=== PATIENT | male | born 1960 | race Caucasian/White ===

== ENCOUNTER → 2017-12-14 | Outpatient (REF) | payer SELFPAY ==
[2017-12-14 18:10] LABS: ALBUMIN 4.3 GM/DL (3.2-5.2); ALBUMIN/GLOBULIN RATIO 1.54 (1.00-1.93); ALKALINE PHOSPHATASE 67 U/L (45-117); ALT/SGPT 33 U/L (12-78); ANION GAP 9 MEQ/L (8-16); AST/SGOT 21 U/L (7-37); BLOOD UREA NITROGEN 20 MG/DL (7-18); CALCIUM LEVEL 8.8 MG/DL (8.5-10.1); CARBON DIOXIDE LEVEL 26 MEQ/L (21-32); CHLORIDE LEVEL 108 MEQ/L (98-107); CHOLESTEROL LEVEL 170 MG/DL (<200); CHOLESTEROL RISK RATIO 3.617 (<5); CREATININE FOR GFR 0.91 MG/DL (0.70-1.30); GLOMERULAR FILTRATION RATE > 60.0 (>56); GLUCOSE, FASTING 97 MG/DL (70-100); HDL CHOLESTEROL 47 MG/DL (>40); LDL CHOLESTEROL 112.4 MG/DL (<100); NON-HDL-C 123 MG/DL; POTASSIUM SERUM 4.3 MEQ/L (3.5-5.1); SODIUM LEVEL 143 MEQ/L (136-145); TOTAL PROTEIN 7.1 GM/DL (6.4-8.2); TRIGLYCERIDES LEVEL 53 MG/DL (<150)
== END ==
LOC: M LAB REF 17:06
DX: I10 Essential (primary) hypertension (principal)
CPT/HCPCS: 84443

== ENCOUNTER → 2021-09-21 | Outpatient (CLI) | payer MEDICAID, OTHER | LOC: M RAD 12:59 | PROVIDERS: ATTEND Physician Assistant | DX: M79.604 Pain in right leg (principal) ==

== ENCOUNTER → 2021-11-19 | Outpatient (CLI) | payer OTHER | LOC: M RAD 16:07 | PROVIDERS: ATTEND Physician Assistant Surgical | DX: M79.661 Pain in right lower leg (principal) ==

== ENCOUNTER → 2021-11-25 | Outpatient (CLI) | payer OTHER ==
[2021-11-25 12:30] LABS: BASO % 0.6 % (0.0-1.0); EOS # 0.1 10^3/uL (0.0-0.5); EOS % 2.8 % (0.0-3.0); HEMOGLOBIN 15.9 g/dl (13.5-17.5); LYMPH # 1.1 10^3/uL (1.5-5.0); LYMPH % 23.4 % (24.0-44.0); MEAN CORPUSCULAR HEMOGLOBIN 30.1 pg (27.0-33.0); MEAN CORPUSCULAR HGB CONC 34.6 g/dl (32.0-36.5); MEAN CORPUSCULAR VOLUME 87.1 fl (80.0-96.0); MONO # 0.5 10^3/uL (0.0-0.8); MONO % 9.8 % (2.0-8.0); NEUTROPHILS % 63.2 % (36.0-66.0); PLATELET COUNT, AUTOMATED 185 10^3/uL (150-450); RED BLOOD COUNT 5.28 10^6/uL (4.30-6.10); WHITE BLOOD COUNT 4.7 10^3/uL (4.0-10.0)
[2021-11-25 13:03] LABS: C REACTIVE PROTEIN QUANTITATIV 0.34 MG/DL (0.00-0.30); RHEUMATOID FACTOR QUANT < 10.0 IU/ML (<15.0); URIC ACID 4.4 MG/DL (3.5-7.2)
[2021-11-25 13:15] LABS: ERYTHROCYTE SEDIMENTATION RATE 1 mm/hr (0-20)
== END ==
LOC: M LAB 11:36
PROVIDERS: ATTEND Physician Assistant Surgical
DX: M79.661 Pain in right lower leg (principal)

== ENCOUNTER → 2021-11-25 | Outpatient (CLI) | payer OTHER | LOC: M RAD 11:31 | PROVIDERS: ATTEND Physician Assistant | DX: M79.671 Pain in right foot (principal); M19.071 Primary osteoarthritis, right ankle and foot ==

== ENCOUNTER → 2021-12-07 | Outpatient (CLI) | payer OTHER ==
[2021-12-07 12:38] LABS: ALBUMIN 4.3 GM/DL (3.2-5.2); BLOOD UREA NITROGEN 19 MG/DL (7-18); CALCIUM LEVEL 10.2 MG/DL (8.8-10.2); CARBON DIOXIDE LEVEL 27 MEQ/L (21-32); CHLORIDE LEVEL 111 MEQ/L (98-107); GLOMERULAR FILTRATION RATE > 60.0 (>49); GLUCOSE, FASTING 97 MG/DL (70-100); POTASSIUM SERUM 4.6 MEQ/L (3.5-5.1); SODIUM LEVEL 142 MEQ/L (136-145)
[2021-12-07 12:50] LABS: MALB URINE SIEMENS 7.3 MG/L; MAU/CREAT RATIO 6.7 MCG/MG (0.0-30.0)
== END ==
LOC: M LAB 11:20
PROVIDERS: ATTEND Internal Medicine Cardiovascular Disease
DX: I10 Essential (primary) hypertension (principal)

== ENCOUNTER → 2022-03-10 | Outpatient (CLI) | payer OTHER ==
[2022-03-10 13:28] LABS: BLOOD UREA NITROGEN 21 MG/DL (7-18); CALCIUM LEVEL 9.6 MG/DL (8.8-10.2); CARBON DIOXIDE LEVEL 29 MEQ/L (21-32); CHLORIDE LEVEL 107 MEQ/L (98-107); CREATININE FOR GFR 0.94 MG/DL (0.70-1.30); GLOMERULAR FILTRATION RATE > 60.0 (>49); GLUCOSE, FASTING 96 MG/DL (70-100); POTASSIUM SERUM 4.8 MEQ/L (3.5-5.1); SODIUM LEVEL 139 MEQ/L (136-145)
== END ==
LOC: M LAB 11:06
PROVIDERS: ATTEND Physician Assistant
DX: I10 Essential (primary) hypertension (principal)

== ENCOUNTER → 2022-03-10 | Outpatient (CLI) | payer OTHER | LOC: M LAB 11:05 | PROVIDERS: ATTEND Physician Assistant Surgical | DX: M48.062 Spinal stenosis, lumbar region with neurogenic claudication (principal) ==

== ENCOUNTER → 2022-03-11 | Outpatient (CLI) | payer OTHER ==
[2022-03-11 17:38] LABS: COLLAGEN EPINEPHRINE 139 SECONDS (74-162)
[2022-03-11 17:39] LABS: PLATELET COUNT, AUTOMATED 207 10^3/uL (150-450)
[2022-03-11 17:48] LABS: INR 0.95; PROTHROMBIN TIME 13.1 SECONDS (12.7-14.5)
[2022-03-11 17:49] LABS: PARTIAL THROMBOPLASTIN TIME 29.5 SECONDS (25.9-37.0)
== END ==
LOC: M LAB 16:35
PROVIDERS: ATTEND Physician Assistant Surgical
DX: M48.062 Spinal stenosis, lumbar region with neurogenic claudication (principal)

== ENCOUNTER → 2022-08-06 | Outpatient (REF) | payer OTHER ==
[2022-08-06 17:03] LABS: ALBUMIN 4.1 G/DL (3.2-5.2); ALKALINE PHOSPHATASE 69 U/L (46-116); ALT/SGPT 32 U/L (7.0-40); AST/SGOT 28 U/L (<34); BILIRUBIN,TOTAL 1.3 MG/DL (0.3-1.2); BLOOD UREA NITROGEN 17 MG/DL (9-23); CALCIUM LEVEL 9.2 MG/DL (8.3-10.6); CARBON DIOXIDE LEVEL 26 MMOL/L (20-31); CHLORIDE LEVEL 104 MMOL/L (98-107); CREATININE FOR GFR 0.86 MG/DL (0.70-1.30); GLOMERULAR FILTRATION RATE > 60.0 (>49); GLUCOSE, FASTING 91 MG/DL (74-106); SODIUM LEVEL 138 MMOL/L (136-145); TOTAL PROTEIN 6.9 G/DL (5.7-8.2)
[2022-08-06 17:38] LABS: HEMOGLOBIN A1c 4.9 % (4.0-6.0)
== END ==
LOC: M LAB REF 16:08
PROVIDERS: ATTEND Physician Assistant
DX: R73.9 Hyperglycemia, unspecified (principal)

== ENCOUNTER → 2022-09-29 | Outpatient (CLI) | payer OTHER | LOC: M SLEEP HO 11:27 | PROVIDERS: ATTEND Physician Assistant | DX: R06.83 Snoring (principal) ==

== ENCOUNTER → 2022-09-29 | Outpatient (CLI) | payer OTHER ==
[2022-09-29 13:37] LABS: CHOLESTEROL RISK RATIO 4.01 (<5); HDL CHOLESTEROL 43.1 MG/DL (>40); LDL CHOLESTEROL 119.9 MG/DL (<100); NON-HDL-C 129.9 MG/DL
== END ==
LOC: M LAB 11:29
PROVIDERS: ATTEND Physician Assistant
DX: Z13.220 Encounter for screening for lipoid disorders (principal)

== ENCOUNTER → 2022-10-13 | Outpatient (REF) | payer OTHER ==
[2022-10-13 16:33] LABS: HEMATOCRIT 52.2 % (42.0-52.0); HEMOGLOBIN 17.8 g/dl (13.5-17.5); MEAN CORPUSCULAR HEMOGLOBIN 30.3 pg (27.0-33.0); MEAN CORPUSCULAR HGB CONC 34.1 g/dl (32.0-36.5); MEAN CORPUSCULAR VOLUME 88.9 fl (80.0-96.0); PLATELET COUNT, AUTOMATED 199 10^3/uL (150-450); RED BLOOD COUNT 5.87 10^6/uL (4.30-6.10); WHITE BLOOD COUNT 6.6 10^3/uL (4.0-10.0)
[2022-10-13 17:01] LABS: ALBUMIN 4.2 G/DL (3.2-5.2); ALKALINE PHOSPHATASE 60 U/L (46-116); ALT/SGPT 40 U/L (7.0-40); AST/SGOT 19 U/L (<34); BILIRUBIN,TOTAL 0.8 MG/DL (0.3-1.2); BLOOD UREA NITROGEN 14 MG/DL (9-23); CALCIUM LEVEL 9.3 MG/DL (8.3-10.6); CARBON DIOXIDE LEVEL 26 MMOL/L (20-31); CHLORIDE LEVEL 106 MMOL/L (98-107); CHOLESTEROL LEVEL 138 MG/DL (<200); CHOLESTEROL RISK RATIO 3.13 (<5); CREATININE FOR GFR 0.89 MG/DL (0.70-1.30); GLOMERULAR FILTRATION RATE > 60.0 (>49); GLUCOSE, FASTING 86 MG/DL (74-106); LDL CHOLESTEROL 76.2 MG/DL (<100); POTASSIUM SERUM 4.4 MMOL/L (3.5-5.1); SODIUM LEVEL 142 MMOL/L (136-145); TOTAL PROTEIN 6.8 G/DL (5.7-8.2); TRIGLYCERIDES LEVEL 89 MG/DL (<150)
== END ==
LOC: M LAB REF 16:07
PROVIDERS: ATTEND Physician Assistant
DX: I10 Essential (primary) hypertension (principal)

== ENCOUNTER → 2024-02-01 | Outpatient (CLI) | payer OTHER ==
[2024-02-01 10:34] LABS: ALBUMIN 3.8 G/DL (3.2-5.2); ALKALINE PHOSPHATASE 64 U/L (46-116); ALT/SGPT 29 U/L (7.0-40); AST/SGOT 16 U/L (<34); BILIRUBIN,TOTAL 1.1 MG/DL (0.3-1.2); BLOOD UREA NITROGEN 21 MG/DL (9-23); CALCIUM LEVEL 9.4 MG/DL (8.3-10.6); CARBON DIOXIDE LEVEL 27 MMOL/L (20-31); CHLORIDE LEVEL 108 MMOL/L (98-107); CHOLESTEROL LEVEL 92 MG/DL (<200); CHOLESTEROL RISK RATIO 2.97 (<5); CREATININE FOR GFR 0.85 MG/DL (0.70-1.30); GLOMERULAR FILTRATION RATE > 60.0 (>49); GLUCOSE, FASTING 105 MG/DL (74-106); HDL CHOLESTEROL 30.9 MG/DL (>40); LDL CHOLESTEROL 47.9 MG/DL (<100); NON-HDL-C 61.1 MG/DL; POTASSIUM SERUM 3.5 MMOL/L (3.5-5.1); SODIUM LEVEL 143 MMOL/L (136-145); TOTAL PROTEIN 6.4 G/DL (5.7-8.2); TRIGLYCERIDES LEVEL 66 MG/DL (<150)
== END ==
LOC: M LAB 09:19
PROVIDERS: ATTEND Physician Assistant
DX: I10 Essential (primary) hypertension (principal); E78.00 Pure hypercholesterolemia, unspecified

== ENCOUNTER → 2024-06-06 | Outpatient (CLI) | payer OTHER | LOC: M PLAIMG 10:41 | PROVIDERS: ATTEND Physician Assistant | DX: I77.810 Thoracic aortic ectasia (principal); I36.1 Nonrheumatic tricuspid (valve) insufficiency ==

== ENCOUNTER → 2024-10-31 | Outpatient (CLI) | payer MEDICARE, MEDICAID ==
[2024-10-31 10:58] LABS: BASO % 0.6 % (0.0-1.0); EOS # 0.1 10^3/uL (0.0-0.5); HEMATOCRIT 54.3 % (42.0-52.0); HEMOGLOBIN 18.2 g/dl (13.5-17.5); LYMPH # 1.5 10^3/uL (1.5-5.0); MEAN CORPUSCULAR HEMOGLOBIN 30.1 pg (27.0-33.0); MEAN CORPUSCULAR HGB CONC 33.5 g/dl (32.0-36.5); MEAN CORPUSCULAR VOLUME 89.8 fl (80.0-96.0); MONO # 0.5 10^3/uL (0.0-0.8); MONO % 7.6 % (2.0-8.0); NEUTROPHILS # 4.7 10^3/uL (1.5-8.5); NEUTROPHILS % 67.5 % (36.0-66.0); PLATELET COUNT, AUTOMATED 231 10^3/uL (150-450); RED BLOOD COUNT 6.05 10^6/uL (4.30-6.10)
[2024-10-31 11:32] LABS: ALBUMIN 4.3 G/DL (3.2-5.2); ALKALINE PHOSPHATASE 69 U/L (40-129); ALT/SGPT 37 U/L (7.0-40); AST/SGOT 19 U/L (<34); BILIRUBIN,TOTAL 1.2 MG/DL (0.3-1.2); BLOOD UREA NITROGEN 15 MG/DL (9-23); CALCIUM LEVEL 10.1 MG/DL (8.3-10.6); CARBON DIOXIDE LEVEL 31 MMOL/L (20-31); CHLORIDE LEVEL 106 MMOL/L (98-107); CHOLESTEROL LEVEL 123 MG/DL (<200); CHOLESTEROL RISK RATIO 3.12 (<5); CREATININE FOR GFR 0.92 MG/DL (0.70-1.30); GLOMERULAR FILTRATION RATE > 90.0 (>49); GLUCOSE, FASTING 101 MG/DL (74-106); HDL CHOLESTEROL 39.4 MG/DL (>40); NON-HDL-C 83.6 MG/DL; POTASSIUM SERUM 4.4 MMOL/L (3.5-5.1); SODIUM LEVEL 145 MMOL/L (136-145); TOTAL PROTEIN 7.2 G/DL (5.7-8.2); TRIGLYCERIDES LEVEL 63 MG/DL (<150)
[2024-10-31 11:34] LABS: FREE T4 1.44 NG/DL (0.89-1.76); THYROID STIMULATING HORMONE 2.906 uIU/ML (0.55-4.78)
== END ==
LOC: M RAD 09:57
PROVIDERS: ATTEND Physician Assistant
DX: I10 Essential (primary) hypertension (principal); E78.00 Pure hypercholesterolemia, unspecified; R53.82 Chronic fatigue, unspecified; R06.02 Shortness of breath

== ENCOUNTER → 2025-05-01 | Outpatient (REF) | payer MEDICARE, MEDICAID ==
[2025-05-01 18:43] LABS: ALT/SGPT 26 U/L (7.0-40); AST/SGOT 18 U/L (<34); CALCIUM LEVEL 9.6 MG/DL (8.3-10.6); CARBON DIOXIDE LEVEL 24 MMOL/L (20-31); CHLORIDE LEVEL 108 MMOL/L (98-107); CHOLESTEROL LEVEL 114 MG/DL (<200); CHOLESTEROL RISK RATIO 2.82 (<5); CREATININE FOR GFR 0.78 MG/DL (0.70-1.30); GLOMERULAR FILTRATION RATE > 90.0 (>49); LDL CHOLESTEROL 56.0 MG/DL (<100); NON-HDL-C 73.6 MG/DL; POTASSIUM SERUM 4.5 MMOL/L (3.5-5.1); SODIUM LEVEL 145 MMOL/L (136-145); TRIGLYCERIDES LEVEL 88 MG/DL (<150)
[2025-05-01 18:53] LABS: BASO # 0.1 10^3/uL (0.0-0.2); BASO % 0.7 % (0.0-1.0); EOS # 0.2 10^3/uL (0.0-0.5); EOS % 2.4 % (0.0-3.0); LYMPH # 1.3 10^3/uL (1.5-5.0); LYMPH % 16.4 % (24.0-44.0); MONO # 0.6 10^3/uL (0.0-0.8); MONO % 7.5 % (2.0-8.0); NEUTROPHILS # 5.9 10^3/uL (1.5-8.5); NEUTROPHILS % 72.8 % (36.0-66.0); PLATELET COUNT, AUTOMATED 227 10^3/uL (150-450)
== END ==
LOC: M LAB REF 17:32
PROVIDERS: ATTEND Nurse Practitioner Family
DX: I10 Essential (primary) hypertension (principal); E78.00 Pure hypercholesterolemia, unspecified; D58.2 Other hemoglobinopathies

== ENCOUNTER → 2025-06-18 | Outpatient (CLI) | payer MEDICARE, MEDICAID | LOC: M PLAIMG 08:54 | PROVIDERS: ATTEND Nurse Practitioner Family | DX: M48.062 Spinal stenosis, lumbar region with neurogenic claudication (principal); M51.16 Intervertebral disc disorders with radiculopathy, lumbar region; M47.896 Other spondylosis, lumbar region ==